=== PATIENT | male | born 1965 | race Native Hawaiian/Other Pacific Islander ===

== ENCOUNTER 2018-01-24 12:42 | Day surgery (SDC) | payer BC ==
[2018-01-24] MEDS ORDERED: PROPOFOL 10 MG/ML VIAL IV ONE (12:43)
[2018-01-24] MEDS ORDERED: LIDOCAINE 2% MDV (20MG/ML) 20ML VIAL IV ONE (12:43)
--- NOTE | 2018-01-27 13:30 | Operative Note ---
DATE OF SURGERY: 01/24/2018 SURGEON: Jose De Jesus Rob MD OPERATION: COLONOSCOPY. INDICATIONS: This is a 52-year-old male with average risk for colorectal cancer who presented for screening colonoscopy. POSTOPERATIVE DIAGNOSES: 1. Left-sided colonic diverticulosis. 2. A 6 mm sessile polyp in the ascending colon that was removed by cold snare. 3. Two 6-8 mm sessile polyps in the descending colon that were removed by cold snare. 4. A 1 cm pedunculated polyp in the sigmoid colon that was removed by snare cautery. 5. Grade 1 internal hemorrhoids. ANESTHESIA: Sedation is per Anesthesia. Pulse oximetry was monitored throughout the procedure to maintain O2 saturation of 90% or greater. Supplemental oxygen was administered via nasal cannula. Cardiac and vital signs were monitored throughout the duration of the procedure, and they were stable. The procedure of colonoscopy and risks and alternatives of the procedure, including the risk of bleeding and perforation, among others, were explained to the patient who voiced understanding and agreed to have the procedure done. Physical examination was performed, and the patient was found stable for sedation. PROCEDURE: The patient was placed in the left lateral position. Sedation was initiated. A digital rectal exam was performed and showed some mild external hemorrhoids with no palpable rectal masses. An Olympus PCF-180AL colonoscope was then inserted into the rectum under direct visualization. It was advanced to the cecum without difficulty. The ileocecal valve and appendiceal orifice were identified and photographed. The colonic mucosa was carefully examined upon introduction of the colonoscope. There were scattered diverticula noted in the sigmoid and descending colon. In the ascending colon was a 6 mm sessile polyp that was noted and was removed by cold snare. The ileocecal valve was intubated and terminal ileal mucosa was inspected for about 10 cm and it appeared normal. The colonoscope was then withdrawn while carefully examining the colonic mucosal surfaces. The rest of the ascending colon and transverse colon appeared normal. In the descending colon were two 6-8 mm sessile polyps that were noted and they were removed by cold snare. In the sigmoid colon was a 1 cm pedunculated polyp that was noted and was removed by snare cautery. There were no other lesions noted. The colonoscope was then withdrawn into the rectum and retroflexion was performed. Grade 1 internal hemorrhoids were noted. The colonoscope was then withdrawn and the procedure was terminated. The patient tolerated the procedure well without any immediate complications. The patient remained with stable vital signs and was transferred to the recovery room. RECOMMENDATIONS: 1. The patient should be on a high-fiber diet. 2. The patient is to have a repeat colonoscopy for surveillance in 3 years. Thank you for allowing me to participate in the care of your patient. CC: Dr. Jett NEW
== END 2018-01-24 14:46 | disposition home or self-care (01) ==
LOC: HOP 12:42
PROVIDERS: ATTEND Internal Medicine Gastroenterology
DX: Z12.11 Encounter for screening for malignant neoplasm of colon (principal); D12.2 Benign neoplasm of ascending colon; D12.4 Benign neoplasm of descending colon; D12.5 Benign neoplasm of sigmoid colon; K64.0 First degree hemorrhoids